=== PATIENT | female | born 1945 | race Caucasian/White ===

== ENCOUNTER 2016-04-04 05:38 | Outpatient (CLI) | payer MEDICARE, OTHER ==
[~2016-04-04] VITALS: Ht 157.5 cm; Wt 88.0 kg
[~2016-04-04 05:38] MED LIST: AMLO5TAB2 PO; CHOL500019 PO; LISI40TA PO; OMEG-12 PO; PRV20T PO
[2016-04-04] MEDS ORDERED: SPIR50TA2 PO (14:48)
== END 2016-04-04 14:50 ==
LOC: PREOP 05:38
PROVIDERS: ATTEND Surgery
DX: Z01.818 Encounter for other preprocedural examination (principal)

== ENCOUNTER 2016-04-09 07:53 | Day surgery (SDC) | payer MEDICARE, OTHER ==
[~2016-04-09] VITALS: Ht 157.5 cm; Wt 88.0 kg
[~2016-04-09 07:53] MED LIST changes: +SPIR50TA2 PO
[2016-04-09] MEDS ORDERED: NS IV 1000 ML 1,000 ML ONE (08:09)
[2016-04-09] MEDS ORDERED: HURRICAINE EXT TUBE (BENZOCAINE) XX PRN (08:15)
[2016-04-09] MEDS ORDERED: FLUMAZENIL (ROMAZICON) 0.1 MG/ML 5 ML VIAL INJ PRN (08:15)
[2016-04-09] MEDS ORDERED: MIDAZOLAM 2 MG/2 ML (VERSED) VIAL IVP PRN (08:15)
[2016-04-09] MEDS ORDERED: NALOXONE 0.4 MG/ML 1 ML (NARCAN) VIAL IVP PRN (08:15)
[2016-04-09] MEDS ORDERED: fentaNYL INJECTION 100 MCG/2 ML AMP IVP PRN (08:15)
[2016-04-09 08:29] VITALS: BP 150/90
[2016-04-09] MEDS ORDERED: NS IV 1000 ML 1,000 ML IV PRN (08:30)
[2016-04-09] MEDS ORDERED: NS IV 500 ML 500 ML IV PRN (08:30)
[2016-04-09] MEDS ORDERED: proPOfol 200 MG/20 ML (DIPRIVAN) VIAL IV ONE (09:49)
[2016-04-09] MEDS ORDERED: fentaNYL INJECTION 100 MCG/2 ML AMP ONE (09:49)
--- NOTE | 2016-04-09 10:25 | Progress Note-Post Operative ---
Post-Operative Progess Note Pre-Operative Diagnosis reflux occult + stool Post-Operative Diagnosis hiatal hernia, small healing punctate antral ulcers Post-Op Procedure Note Date of Procedure: Apr 09, 2016 Name of Procedure: egd c biopsies, colonoscopy Procedure Note/Findings see note Anesthesia Type per field servicer Estimated blood loss (mL): none Specimen(s) collected antrum, distal esophagus CAROL BEDOYA DO Apr 09, 2016 10:25
[2016-04-09] MEDS ORDERED: PANT40TA2 PO (10:37)
[2016-04-09] MEDS ORDERED: SUCR1TAB36 PO (10:37)
--- NOTE | 2016-04-09 10:40 | Discharge Inst-Simple/Standard ---
Discharge Inst-Standard Discharge Medications New, Converted or Re-Newed RX: Transmitted to Pharmacy Patient Instructions/Follow Up Plan of Care/Instructions/FU: Follow up with Dr. Villa in 2 weeks. Take medication as directed. Activity as Tolerated: Yes Discharge Diet: No Restrictions CONCEPCION MCCONNELL APRN Apr 09, 2016 10:40
[2016-04-09 10:50] VITALS: BP 113/60
[2016-04-09 11:15] VITALS: BP 153/82
[2016-04-09 11:19] VITALS: BP 153/82
--- NOTE | 2016-04-10 10:12 | OPERATIVE REPORT ---
PROCEDURE PHYSICIAN: CAROL BEDOYA DATE OF PROCEDURE: 04/09/2016 PREOPERATIVE DIAGNOSIS: 1. Reflux. 2. Occult positive stools. POSTOPERATIVE DIAGNOSES: 1. Small antral ulcers. 2. Hiatal hernia. 3. Normal colon. PROCEDURE: 1. EGD with biopsies of the antrum and distal esophagus 2. Colonoscopy. SURGEON: Allen. ANESTHESIA: Per HARDENING MACHINE OPERATOR HELPER. ESTIMATED BLOOD LOSS: None. COMPLICATIONS: None. INDICATIONS: The patient is a 70-year-old female with occult positive stool. She understands risks and benefits of procedures and wished to proceed with the procedures. Consent was signed on the chart. PROCEDURE: The patient was taken to the endoscopy suite, placed left lateral recumbent position. Timeout was performed. The scope inserted in the mouth, down the esophagus, stomach and into the duodenum without difficulty. There were no polyps, masses or ulcerations within the duodenum. The scope was slowly retracted back to the stomach where in the antrum there is some small punctate ulcerations. No bleeding. Biopsy of the antrum was obtained. The scope was also retroflexed noting small hiatal hernia. There was no other pathology noted. The scope was returned to its normal position and slowly withdrawn. The distal esophagus had very minimal slight erythematous changes. Biopsy of the distal esophagus was obtained. The scope was then slowly retracted back until completely removed noting no other pathology. COLONOSCOPY: Digital rectal exam was performed. There were no palpable polyps, masses, ulcerations. The scope was inserted in the rectum and advanced all the way to the cecum with minimal difficulty. Prep was adequate. The scope was then slowly retracted back. There were no polyps, masses, ulcerations of the cecum, ascending, transverse, descending and sigmoid colon. Slowly was continued to be retracted back into the rectum where it was also retroflexed noting no further pathology. The scope was returned to its normal position and slowly withdrawn until completely removed. The patient tolerated procedure well without any complications. She was taken to the recovery room in stable condition. RECOMMENDATIONS: The patient will be placed on Protonix twice a day for approximately 2 weeks and then switched to one per day. She will also be placed on Carafate 1 gram 4 times a day. We will follow-up in the clinic in about 3 weeks ago to see how she is doing at that time. She will need a repeat colonoscopy in 10 years unless family history of colon cancer which would be 5 years or if she has a personal history of colon polyps which would be 5 years. If she has any problems prior to that, she should be reevaluated at that time. Job ID: [id number] Dictated Date: 04/09/2016 10:28:05 Control And Recovery Special Tactics Date: 04/10/2016 10:04:42 / bryce
== END 2016-04-09 11:17 | disposition home or self-care (01) ==
LOC: ENDO 07:53
PROVIDERS: ATTEND Surgery
DX: R19.5 Other fecal abnormalities (principal); K21.9 Gastro-esophageal reflux disease without esophagitis; K44.9 Diaphragmatic hernia without obstruction or gangrene; K25.9 Gastric ulcer, unspecified as acute or chronic, without hemorrhage or perforation
CPT/HCPCS: 88305

== ENCOUNTER → 2016-06-18 | Outpatient (CLI) | payer MEDICARE, OTHER ==
[~2016-06-18] MED LIST changes: +PANT40TA2 PO; +SUCR1TAB36 PO
--- NOTE | 2016-06-18 10:19 | Diagnostic Imaging Report ---
Bilateral screening mammogram The current study was also evaluated with a Computer Aided Detection (CAD) system. Indication: Screening. No current complaints stated on the questionnaire. COMPARISON: 10/07/14. FINDINGS: The breasts are composed of heterogeneously dense parenchyma which may decrease mammographic sensitivity. There are vascular calcifications seen. Intramammary lymph nodes are noted in the outer aspect of each breast without change. Allowing for technique and positional differences, no suspicious change is seen. IMPRESSION: No significant change. ACR BI-RADS Category 2: Benign findings. Result letter will be mailed to the patient. Note: At least 10% of breast cancer is not imaged by mammography. Dictated by: Dictated on workstation # [id number]
== END ==
LOC: RAD 07:25
PROVIDERS: ATTEND Family Medicine
DX: Z12.31 Encounter for screening mammogram for malignant neoplasm of breast (principal)
CPT/HCPCS: 77067

== ENCOUNTER → 2017-08-14 | Outpatient (CLI) | payer MEDICARE, OTHER ==
[~2017-08-14] MED LIST changes: +IOHEXOL 350 MG/ML 100 ML (OMNIPAQUE 350) VIAL IV ONE; +NS 250 ML (IVPB) BAG IV ONE
[2017-08-14 09:53] LABS: CREATININE SERUM 1.04 MG/DL (0.60-1.30)
--- NOTE | 2017-08-14 12:37 | Diagnostic Imaging Report ---
PROCEDURE: CT chest with contrast only. TECHNIQUE: Multiple contiguous axial images were obtained through the chest after administration of intravenous contrast. INDICATION: Persistent cough. COMPARISON: There are no prior studies available for comparison. FINDINGS: There is a 1.8 x 3.3 cm dense asa mass in the pretracheal region on the right. This may represent a single enlarged lymph node or two slightly enlarged lymph nodes. There are also a few lymph nodes in the aorticopulmonary window. The largest of these measures 0.9 x 2.4 cm. There is a 1.4 x 1.4 cm right hilar node as well and a 1.0 x 1.2 cm left hilar node. These nodes are nonspecific in appearance, and they could be reactive nodes. The possibility that they are involved by neoplasm cannot be entirely excluded. There are also a few small (1 cm or less) nodes in each axilla. These too are nonspecific. There is no obvious breast mass. The heart size is within normal limits. There are scant coronary artery calcifications evident. The aorta is not abnormally dilated. The pulmonary arteries are not well opacified, but there is no definite defect within the pulmonary arteries to indicate a pulmonary embolus. There is a single droplet of air in the main pulmonary artery. This is probably related to the injection of the contrast. The thyroid gland was not visualized in its entirety. Where visualized, the gland is unremarkable. There are mild emphysematous changes involving both lungs. There is a small 4.6 mm noncalcified nodule in the periphery of the right mid lung (image 23/53). No other parenchymal lung mass is seen. There is some scar formation/chronic atelectasis in the lingula. The lungs are otherwise generally clear. There is no evidence for failure, pneumonia, or for a pleural effusion. The sections through the upper abdomen fail to show any sign of an acute abnormality. The bone windows are unremarkable for an acute fracture or for a destructive lesion. IMPRESSION: 1. There is nonspecific mediastinal and hilar adenopathy. Whether these nodes are related to an inflammatory/infectious process or less likely to neoplasm is not certain. If further imaging is desired, then PET/CT should be considered. If the PET/CT exam is not performed, then a short-term (three-month) followup CT chest exam would be recommended. The small pulmonary nodule in the right mid lung could also be further evaluated by the followup CT. Bronchoscopy may also provide additional information. 2. There is no acute cardiopulmonary abnormality identified otherwise. Dictated by: Dictated on workstation # [id number]
== END ==
LOC: RAD 09:13
PROVIDERS: ATTEND Nurse Practitioner Family
DX: R59.0 Localized enlarged lymph nodes (principal); R91.1 Solitary pulmonary nodule
CPT/HCPCS: 36415; 71260; 82565; 84520

== ENCOUNTER → 2017-12-23 | Outpatient (CLI) | payer MEDICARE, OTHER ==
[~2017-12-23] MED LIST changes: -IOHEXOL 350 MG/ML 100 ML (OMNIPAQUE 350) VIAL IV ONE; -NS 250 ML (IVPB) BAG IV ONE; -SPIR50TA2 PO; +SPIR50TA4 PO
--- NOTE | 2017-12-23 14:46 | Diagnostic Imaging Report ---
INDICATION: Mediastinal mass. TECHNIQUE: The serum blood glucose level at the time of injection was 102 mg/dL. The patient was administered 11.5 mCi of F18 FDG intravenously in a left antecubital location and PET imaging was performed from the top of the skull to the mid thighs. A noncontrast CT was also performed for attenuation correction and anatomic correlation. COMPARISON: Correlation is made with the prior PET/CT from 09/02/[address] chest from 08/14/2017. FINDINGS: Symmetric activity throughout the brain is again noted. There appears to be some physiologic activity within the neck tissues. Imaging through the chest again demonstrates some FDG avidity within mediastinal and hilar nodes, seen previously; however, the overall avidity appears to be decreased when compared to the prior exam. A right paratracheal node now demonstrates an SUV max of approximately 3.5 compared to 6 on the prior exam. AP window and prevascular space nodes demonstrate an SUV max of approximately 3.7 compared to 6 previously. A left hilum node demonstrates an SUV max of approximately 4 Compared to 5 on the previous exam. A right hilar node is approximately 3.8 compared to 4 on the prior exam. A node posterior to the left atrium demonstrates an SUV max of 4.2 compared to 7 on the prior exam. No pulmonary parenchymal hypermetabolism is seen. There appears to be some muscular uptake in left paraspinous muscles on today's study. There is physiologic activity in the GI and tracts. IMPRESSION: There has been an overall decrease in the FDG avidity within mediastinal and hilar lymph nodes when compared with the prior PET/CT from 09/02/2017. No new abnormality is detected. Dictated by: Dictated on workstation # [id number]
== END | disposition home or self-care (01) ==
LOC: RAD 11:38
PROVIDERS: ATTEND Internal Medicine Critical Care Medicine
DX: R91.8 Other nonspecific abnormal finding of lung field (principal); R22.2 Localized swelling, mass and lump, trunk; R94.8 Abnormal results of function studies of other organs and systems; J45.909 Unspecified asthma, uncomplicated

== ENCOUNTER → 2018-04-14 | Outpatient (CLI) | payer MEDICARE, OTHER ==
--- NOTE | 2018-04-14 08:31 | Diagnostic Imaging Report ---
PROCEDURE: CT chest without contrast. TECHNIQUE: Multiple contiguous axial images were obtained through the chest without the use of intravenous contrast. INDICATION: Followup adenopathy. History of mediastinal mass. COMPARISON: PET/CT from 12/23/2017. CT chest from 08/14/2017. FINDINGS: The heart is normal in size. There is no pericardial effusion. The adenopathy in the mediastinum appears mildly improved compared to the prior study, although prominent lymph nodes remain. The right lower paratracheal lymph node measures 2.6 x 1.1 cm, compared to 3.3 x 1.8 cm in August 2017. The lymph node at the aortopulmonary window measures 1.7 x 0.5 cm, compared to 2.4 x 0.9 cm previously. The hilar lymphadenopathy is not appreciated on this noncontrast study, but is likely decreased. There are multiple calcified lymph nodes present. No axillary lymphadenopathy is seen. No focal consolidation is seen in the lungs. There is no pleural effusion or pneumothorax. Mild motion artifact is present. A calcified granuloma is seen in the superior left lower lobe. No acute osseous abnormality is seen. Imaged portions of the upper abdomen demonstrate no acute abnormality as well. IMPRESSION: 1. Mildly prominent mediastinal and hilar lymph nodes appear decreased in size compared to August 2017 and December 2017. 2. Calcified lymph nodes and calcified granuloma likely from old granulomatous disease. No acute pulmonary abnormality seen. Dictated by: Dictated on workstation # [id number]
== END ==
LOC: RAD 07:16
PROVIDERS: ATTEND Internal Medicine Pulmonary Disease
DX: I89.8 Other specified noninfective disorders of lymphatic vessels and lymph nodes (principal); J84.10 Pulmonary fibrosis, unspecified
CPT/HCPCS: 71250

== ENCOUNTER → 2019-03-18 | Outpatient (CLI) | payer MEDICARE, OTHER ==
--- NOTE | 2019-03-18 16:44 | Diagnostic Imaging Report ---
PROCEDURE: MRI lumbar spine. TECHNIQUE: Multiplanar, multisequence MRI of the lumbar spine was performed without contrast. INDICATION: Back discomfort and left leg pain when lying down. COMPARISON: None available. FINDINGS: Normal lordosis of the lumbar spine. No spondylolisthesis. No fracture or marrow replacing process. No active facet synovitis or sacral insufficiency fracture. No features of discitis-osteomyelitis. No epidural mass or fluid collection. The distal thoracic cord is normal in appearance and terminates at appropriate level. T12-L1: Diffuse disc bulge. Mild facet osteoarthritis and ligamentum flavum hypertrophy. This results in mild spinal stenosis and mild bilateral foraminal narrowing. L1-L2: Circumferential disc bulge. Mild facet and ligamentum flavum hypertrophy. This results in mild spinal stenosis and mild bilateral foraminal narrowing. L2-L3: Disc bulge causes mild bilateral foraminal narrowing. No spinal stenosis. L3-L4: Circumferential disc bulge with left facet osteoarthritis. No resultant spinal stenosis but there is mild bilateral foraminal narrowing. L4-L5: Circumferential disc bulge with moderate to severe bilateral facet osteoarthritis. This results in moderate to severe left lateral recess narrowing and moderate spinal stenosis. Moderate to severe left and moderate right foraminal narrowing. L5-S1: Circumferential disc bulge. Moderate facet osteoarthritis. There is mild right lateral recess narrowing and mild spinal stenosis. Mild bilateral foraminal narrowing. IMPRESSION: 1. No fracture. 2. Diffuse degenerative disc disease and facet osteoarthritis throughout the lumbar spine. This is greatest at L4-L5 where there is moderate spinal stenosis and moderate to severe narrowing of the left lateral recess. This could be the source of impingement of the descending/transversing nerve roots at this level. Dictated by: Dictated on workstation # [id number]
== END ==
LOC: RAD 14:55
PROVIDERS: ATTEND Orthopaedic Surgery
DX: M48.07 Spinal stenosis, lumbosacral region (principal); M47.816 Spondylosis without myelopathy or radiculopathy, lumbar region; M51.36 Other intervertebral disc degeneration, lumbar region
CPT/HCPCS: 72148

== ENCOUNTER → 2020-07-26 | Outpatient (CLI) | payer MEDICARE, OTHER ==
[2020-07-26 08:30] LABS: BILIRUBIN,TOTAL 0.4 MG/DL (0.1-1.0); CALCIUM 9.7 MG/DL (8.5-10.1); CREATININE SERUM 1.08 MG/DL (0.60-1.30); POTASSIUM 4.2 MMOL/L (3.6-5.0); TOTAL PROTEIN 6.9 GM/DL (6.4-8.2)
--- NOTE | 2020-07-26 09:27 | Diagnostic Imaging Report ---
PROCEDURE: CT angiography of the chest with contrast. TECHNIQUE: Multiple contiguous axial images were obtained through the chest after uneventful bolus administration of intravenous contrast. 3D reconstructed CTA MIP acquisitions were also performed. Auto Exposure Controls were utilized during the CT exam to meet ALARA standards for radiation dose reduction. INDICATION: Abnormal coagulation profile as well as bilateral lower extremity swelling. Comparison is made with CT chest from 04/14/2018. Evaluation of pulmonary arterial system is without evidence of thromboembolism. No definite filling defects are seen within central, lobar or segmental branches. The thoracic aorta is of normal caliber. There is no dissection. No pericardial or pleural fluid is identified. No axillary lymphadenopathy is seen. There are prominent lymph nodes in the mediastinum. A right paratracheal node measures 33 mm x 13 mm compared with approximately 26 mm x 11 mm on prior. No hilar lymphadenopathy is identified. There is a calcified granuloma in the superior segment left lower lobe. No noncalcified pulmonary masses or infiltrates are seen. The upper abdomen is unremarkable. IMPRESSION: 1. No evidence of pulmonary embolism or thoracic aortic dissection. 2. No acute pulmonary infiltrates are seen. 3. Prominent mediastinal lymph nodes, increasing in size since exam from 2019. These are similar to examination from 08/14/2017 and could be reactive or granulomatous. No other significant abnormality is seen. Dictated by: Dictated on workstation # [id number]
--- NOTE | 2020-07-26 09:55 | Diagnostic Imaging Report ---
PROCEDURE: US Venous Lower Ext Bernardo. TECHNIQUE: Multiple Real-time grayscale images were obtained over the lower extremities in various projections, bilaterally. Additional duplex Doppler and color Doppler images were also obtained. INDICATION: Leg pain and swelling, elevated d-dimer. FINDINGS: The veins of the lower extremities have good color filling and compressibility. There is phasic flow with a normal response to augmentation. IMPRESSION: Negative venous Doppler lower extremities. Dictated by: Dictated on workstation # [id number]
== END ==
LOC: RAD 08:00
PROVIDERS: ATTEND Internal Medicine Pulmonary Disease
DX: R22.43 Localized swelling, mass and lump, lower limb, bilateral (principal); R79.1 Abnormal coagulation profile; R06.02 Shortness of breath
CPT/HCPCS: 36415; 71275; 80053; 93970

== ENCOUNTER → 2021-10-22 | Outpatient (CLI) | payer MEDICARE, OTHER ==
[~2021-10-22] MED LIST changes: +RT-ALBUTEROL SULF 2.5 MG/3 ML PRE-MIX VIAL INH ONE
== END ==
LOC: RT 08:00
PROVIDERS: ATTEND Internal Medicine Critical Care Medicine
DX: D86.9 Sarcoidosis, unspecified (principal)
CPT/HCPCS: 94060; 94726; 94729